=== PATIENT | male | born 1980 | race Caucasian/White ===

== ENCOUNTER 2020-06-30 08:06 | Emergency (ER) | payer BC ==
[2020-06-30] MEDS ORDERED: Morphine 4 MG/ML VIAL IV ONE (08:07)
[2020-06-30] MEDS ORDERED: Ketorolac Tromethamine 30 MG/ML VIAL ONE (08:20)
[2020-06-30 08:29] LABS: Bilirubin Negative (Negative); Blood, Urine Negative (Negative); Clarity Clear (Clear); Glucose, Urine (Dipstick) Negative (Negative); Ketone, Urine Negative (Negative); Leukocyte Negative (Negative); Nitrite Negative (Negative); Protein, Urine (Dipstick) Negative (Neg-Trace); Specific Gravity, Urine 1.025 (1.005-1.030); Urobilinogen 0.2 mg/dL (Less than 2)
[2020-06-30 08:32] LABS: #Basophils 0.1 thou/uL (0.0-0.2); #Eosinphils 0.6 thou/uL (0.0-0.7); #Lymphocytes 2.8 thou/uL (1.20-3.40); #Monocytes 0.6 thou/uL (0.11-0.59); #Neutrophils 3.2 thou/uL (1.40-6.50); %Basophils 1.3 % (0.0-1.0); %Eosinophils 8.2 % (0.0-10.0); %Lymphocytes 38.5 % (21.0-51.0); %Monocytes 8.6 % (0.0-10.0); %Neutrophils 43.4 % (42.0-75.0); Hemoglobin 16.3 g/dL (14.0-18.0); Mean Corpuscular HGB CONC 33.2 g/dL (32.0-36.0); Mean Corpuscular Volume 90.3 fL (78.0-98.0); Platelet Count 178 thou/uL (130-400); RBC Distribution Width 10.8 % (11.5-14.5); Red Blood Cell (RBC) Count 5.45 mill/uL (4.70-6.10); White Blood Cell (WBC) Count 7.4 thou/uL (4.8-10.8)
[2020-06-30 08:43] LABS: Anion Gap 17 mmol/L (10-20); BUN (Urea Nitrogen) 17 mg/dL (8.9-20.6); Calc. Creatinine Clearance 0 mL/min (70-130); Calcium 9.1 mg/dL (7.8-10.44); Carbon Dioxide 20 mmol/L (22-29); Chloride 105 mmol/L (98-107); Estimated GFR-MDRD 64; Glucose 127 mg/dL (70-105); Potassium 3.7 mmol/L (3.5-5.1); Sodium 138 mmol/L (136-145)
[2020-06-30] MEDS ORDERED: Morphine 4 MG/ML VIAL ONE ×2 (09:05→09:47)
[2020-06-30] MEDS ORDERED: Ondansetron PF 4 MG/2 ML Vial ONE (09:05)
--- NOTE | 2020-06-30 12:40 | CT ---
CT ABDOMEN AND PELVIS WITHOUT CONTRAST: DATE: 06/30/2020. FINDINGS: Spiral CT of the abdomen and pelvis was done without any contrast using a renal stone protocol. The patient presents with right flank pain. There is a 3 mm stone in the distal right ureter near the right UVJ. There is no renal hydronephrosi s, only minimal dilation of the right ureter. No residual stones were appreciated in the kidneys. The lung bases are clear. The liver, spleen, pancreas, adrenal glands, gallbladder, and abdominal ao rta were unremarkable in appearance within the limitations of a noncontrast study. The bowel shows n o dilation or wall thickening. The appendix appears normal. There are no inflammatory changes aroun d bowel. CT of the pelvis shows no pelvic masses, fluid collections, or free fluid. IMPRESSION: A 3 mm distal right ureteral calculus at the ureterovesical junction. Preliminary report called to Dr. Patterson at 0858 on 06/30/2020. CODE CR POS: HOME
== END 2020-06-30 11:28 | disposition home or self-care (01) ==
LOC: BURERS 08:06
DX: N20.1 Calculus of ureter (principal)
CPT/HCPCS: 74176; 80048; 81003; 85025; 96374; 96375; 96376; J1885; J2270; J2405